=== PATIENT | male | born 1975 | race Caucasian/White ===

== ENCOUNTER 2019-01-19 06:56 | Observation (INO) | payer OTHER ==
--- NOTE | 2019-01-19 07:11 | EDPHY ---
H & P Stated Complaint: abd pain Time Seen by Provider: 01/19/19 07:10 - Personal History Current Tetanus/Diphtheria Vaccine: Unsure - Medical/Surgical History Hx Asthma: No Hx Chronic Respiratory Disease: No Hx Diabetes: No Hx Cardiac Disease: No Hx Renal Disease: No Hx Cirrhosis: No Hx Alcoholism: No - Social History Smoking Status: Never smoked Constitutional: Initial Vital Signs Heart Rate 52 L 01/19/19 07:04 Respiratory Rate 18 01/19/19 07:04 Blood Pressure 138/84 H 01/19/19 07:04 O2 Sat (%) 96 01/19/19 07:04 O2 Delivery Mode Room Air Allergies/Adverse Reactions: No Known Allergies Allergy (Unverified 01/19/19 07:07) Home Medications: Medication Instructions Recorded NK [No Known Home Meds] 01/19/19 Medical Decision Making - Diagnostics Imaging Results: Imaging Impressions Abdomen CT 01/19/19 07:18 Impression: 1. Mild small bowel distention with two apparent transition points in the right lower quadrant, possibly related to early small bowel obstruction, possibly from internal hernia. 2. Additional findings as above. Findings discussed with Camilo Monterroso MD on 01/19/2019 at 8:45 a.m. Imaging: Discussed imaging studies w/ inbound call center representative Radiologist, I viewed and interpreted images myself ED Course/Re-evaluation: CHIEF COMPLAINT: Abdominal pain nausea and vomiting HISTORY OF PRESENT ILLNESS: 43-year-old healthy male who at 3:30 a.m. This morning approximately 4 hr ago developed abdominal pain across the top of his abdomen. It is now quite diffuse and throughout his entire abdomen. He tried to drink some peppermint tea and some water but just threw up the liquid. He has not had a bowel movement and does not feel like he is passing much gas if any. He has never had any abdominal surgeries. He does not take any medicines. He denies fevers or chills. He states that he looks like he is any usually has a flat abdomen. REVIEW OF SYSTEMS: A comprehensive 10 system review of systems is otherwise negative aside from elements mentioned in the history of present illness and medical decision making. PHYSICAL EXAM: HR, BP, O2 Sat, RR. Temp noted General Appearance: Alert, well hydrated, appropriate, and non-toxic appearing. Head: Atraumatic without scalp tenderness or obvious injury Eyes: Pupils equal, round, reactive to light and accommodation, EOMI, no trauma , no injection. Ears: Clear bilaterally, no perforation, normal landmarks Nose: Atraumatic, no rhinorrhea, clear. Throat: There is no erythema or exudates, no lesions, normal tonsils, mucus membranes moist. Neck: Supple, 2+ carotid upstroke, nontender, no lymphadenopathy. Respiratory: No retractions, no distress, no wheezes, and no accessory muscle use. Lungs are clear to auscultation bilaterally. Cardiovascular: Regular rate and rhythm, no murmurs, rubs, or gallops. Bilateral carotid, radial, dorsalis pedis, and posterior tibial pulses intact. Good capillary refill all extremities. Gastrointestinal: Abdomen is distended, diffusely tender with peritoneal signs. No masses are appreciated. Musculoskeletal: Normal active ROM of all extremities, atraumatic. Neurological: Alert, appropriate, and interactive. The patient has normal DTRs and non-focal cranial nerves, motor, sensory, and cerebellar exam. Skin: No rashes, good turgor, no nodules on palpation. Past medical history: None Past surgical history: None and specifically no abdominal surgeries Family history: Noncontributory Social history: , employed, does not abuse tobacco drugs or alcohol, active and healthy DIAGNOSTICS/PROCEDURES/CRITICAL CARE TIME: Abdominopelvic CT: Mild small bowel distention with two apparent transition points in the right lower quadrant, possibly related to early small bowel obstruction, possibly from internal hernia. DIFFERENTIAL DIAGNOSIS: The differential diagnosis for the patient's abdominal pain included but was not limited to appendicitis, cholecystitis, hernias, testicular torsion, gastritis, and urinary tract infection. MEDICAL DECISION MAKING: This 43-year-old healthy male has a diffusely tender abdomen with guarding peritoneal signs. He is not passing much gas. He endorses the fact that he looks and usually has a flat abdomen. Pain has been increasing over the last 4 hr. Laboratory studies and contrast CT scan of the abdomen pelvis pending. I have given the patient intravenous fluids , keep him NPO, Dilaudid, ketorolac, Zofran. 0846: I spoke with Dr. Gonsalez, radiologist, regarding patient's abdominopelvic CT. There is a SBO. 0854: I consulted with Dr. Slaughter, general surgeon, regarding this patient. LDH and venous lactate ordered. 9:45 a.m.: I re-examined this patient. His belly seems quite a bit softer than it was initially. He may potentially be resolving his obstruction. Dr. Slaughter will evaluate the patient and review the scans. I have offered this patient an NG tube is not nauseated anymore really vomited once and he has declined currently. 1015: Dr. Slaughter is in the emergency department now and will examine the patient. I will page the hospitalist to admit the patient. 1047: I consulted with the hospitalist service, Dr. Fischer accepts admission of this patient. - Data Points Laboratory Results: Laboratory Results 01/19/19 07:25 01/19/19 07:25 01/19/19 01/19/19 01/19/19 07:40 07:34 07:25 WBC RBC Hgb POC Hgb 15.6 gm/dL gm/dL (13.7-17.5) Hct POC Hct 46 % % (40-51) MCV MCH MCHC RDW Plt Count MPV Neut % (Auto) Lymph % (Auto) [place] % (Auto) Eos % (Auto) Baso % (Auto) Nucleat RBC Rel Count Absolute Neuts (auto) Absolute Lymphs (auto) Absolute Monos (auto) Absolute Eos (auto) Absolute Basos (auto) Absolute Nucleated RBC Immature Gran % Immature Gran # POC Sodium 142 mEq/L mEq/L (135-145) Sodium POC Potassium 3.9 mEq/L mEq/L (3.3-5.0) Potassium POC Chloride 102 mEq/L mEq/L (97-110) Chloride Carbon Dioxide POC Total CO2 25 mEq/L mEq/L (22-31) Anion Gap POC BUN 15 mg/dL mg/dL (7-23) BUN Creatinine POC Creatinine 0.8 mg/dL mg/dL (0.7-1.3) Estimated GFR Glucose POC Glucose 108 mg/dL H mg/dL (70-100) Calcium Total Bilirubin Conjugated Bilirubin Unconjugated Bilirubin AST ALT Alkaline Phosphatase Lactate Dehydrogenase 468 IU/L IU/L (313-618) Total Protein Albumin Lipase Urine Color YELLOW Urine Appearance CLEAR Urine pH 6.0 (5.0-7.5) Ur Specific [place] 1.019 (1.002-1.030) Urine Protein NEGATIVE (NEGATIVE) Urine Ketones NEGATIVE (NEGATIVE) Urine Blood NEGATIVE (NEGATIVE) Urine Nitrate NEGATIVE (NEGATIVE) Urine Bilirubin NEGATIVE (NEGATIVE) Urine Urobilinogen NEGATIVE EU EU (0.2-1.0) Ur Leukocyte Esterase NEGATIVE (NEGATIVE) Urine Glucose NEGATIVE (NEGATIVE) 01/19/19 01/19/19 07:25 07:25 WBC 8.22 10^3/uL 10^3/uL (3.80-9.50) RBC 4.93 10^6/uL 10^6/uL (4.40-6.38) Hgb 14.9 g/dL g/dL (13.7-17.5) POC Hgb Hct 43.7 % % (40.0-51.0) POC Hct MCV 88.6 fL fL (81.5-99.8) MCH 30.2 pg pg (27.9-34.1) MCHC 34.1 g/dL g/dL (32.4-36.7) RDW 12.4 % % (11.5-15.2) Plt Count 238 10^3/uL 10^3/uL (150-400) MPV 10.5 fL fL (8.7-11.7) Neut % (Auto) 72.8 % % (39.3-74.2) Lymph % (Auto) 20.0 % % (15.0-45.0) [place] % (Auto) 5.0 % % (4.5-13.0) Eos % (Auto) 1.1 % % (0.6-7.6) Baso % (Auto) 0.7 % % (0.3-1.7) Nucleat RBC Rel Count 0.0 % % (0.0-0.2) Absolute Neuts (auto) 5.99 10^3/uL 10^3/uL (1.70-6.50) Absolute Lymphs (auto) 1.64 10^3/uL 10^3/uL (1.00-3.00) Absolute Monos (auto) 0.41 10^3/uL 10^3/uL (0.30-0.80) Absolute Eos (auto) 0.09 10^3/uL 10^3/uL (0.03-0.40) Absolute Basos (auto) 0.06 10^3/uL 10^3/uL (0.02-0.10) Absolute Nucleated RBC 0.00 10^3/uL 10^3/uL (0-0.01) Immature Gran % 0.4 % % (0.0-1.1) Immature Gran # 0.03 10^3/uL 10^3/uL (0.00-0.10) POC Sodium Sodium 139 mEq/L mEq/L (135-145) POC Potassium Potassium 4.3 mEq/L mEq/L (3.5-5.2) POC Chloride Chloride 104 mEq/L mEq/L (97-110) Carbon Dioxide 25 mEq/l mEq/l (22-31) POC Total CO2 Anion Gap 10 mEq/L mEq/L (6-14) POC BUN BUN 16 mg/dL mg/dL (7-23) Creatinine 0.8 mg/dL mg/dL (0.7-1.3) POC Creatinine Estimated GFR > 60 Glucose 104 mg/dL H mg/dL (70-100) POC Glucose Calcium 9.6 mg/dL mg/dL (8.5-10.4) Total Bilirubin 0.5 mg/dL mg/dL (0.1-1.4) Conjugated Bilirubin 0.3 mg/dL mg/dL (0.0-0.5) Unconjugated Bilirubin 0.2 mg/dL mg/dL (0.0-1.1) AST 26 IU/L IU/L (17-59) ALT 34 IU/L IU/L (21-72) Alkaline Phosphatase 60 IU/L IU/L (38-126) Lactate Dehydrogenase Total Protein 7.5 g/dL g/dL (6.3-8.2) Albumin 4.6 g/dL g/dL (3.5-5.0) Lipase 171 IU/L IU/L (23-300) Urine Color Urine Appearance Urine pH Ur Specific [place] Urine Protein Urine Ketones Urine Blood Urine Nitrate Urine Bilirubin Urine Urobilinogen Ur Leukocyte Esterase Urine Glucose Medications Given: Discontinued Medications Hydromorphone HCl (Dilaudid) 0.5 mg IVP EDNOW ONE Stop: 01/19/19 07:18 Last Admin: 01/19/19 07:49 Dose: 0.5 mg Sodium Chloride (Ns) 1,000 mls @ 0 mls/hr IV EDNOW ONE; Wide Open PRN Reason: Protocol Stop: 01/19/19 07:18 Last Admin: 01/19/19 07:38 Dose: 1,000 mls Sodium Chloride (Ns) 1,000 mls @ 0 mls/hr IV EDNOW ONE; Wide Open PRN Reason: Protocol Stop: 01/19/19 07:18 Last Admin: 01/19/19 07:40 Dose: 1,000 mls Ketorolac Tromethamine (Toradol) 30 mg IVP EDNOW ONE Stop: 01/19/19 07:18 Last Admin: 01/19/19 07:46 Dose: 30 mg Ondansetron HCl (Zofran) 4 mg IVP EDNOW ONE Stop: 01/19/19 07:18 Last Admin: 01/19/19 07:40 Dose: 4 mg Point of Care Test Results: Chemistry 01/19/19 07:34 POC Sodium 142 mEq/L mEq/L (135-145) POC Potassium 3.9 mEq/L mEq/L (3.3-5.0) POC Chloride 102 mEq/L mEq/L (97-110) POC Total CO2 25 mEq/L mEq/L (22-31) POC BUN 15 mg/dL mg/dL (7-23) POC Creatinine 0.8 mg/dL mg/dL (0.7-1.3) POC Glucose 108 mg/dL H mg/dL (70-100) ISTAT H&H 01/19/19 07:34 POC Hgb 15.6 gm/dL gm/dL (13.7-17.5) POC Hct 46 % % (40-51) Departure - Departure Disposition: [facility] Inpatient Acute Clinical Impression: Small bowel obstruction Condition: Fair Referrals: Verito Shah MD [Primary Care Provider] - As per Instructions
[2019-01-19] MEDS ORDERED: KETOROLAC 30 MG/1 ML SDV IVP ONE (07:17)
[2019-01-19] MEDS ORDERED: ONDANSETRON 4 MG/2 ML VIAL IVP ONE (07:17)
[2019-01-19] MEDS ORDERED: HYDROmorphONE/DILAUDID 2 MG/ML INJ IVP ONE ×2 (07:17→10:52)
[2019-01-19] MEDS ORDERED: NS 1,000 ML IV ONE ×2 (07:17)
[2019-01-19 07:33] LABS: PLATELET COUNT 238 10^3/uL (150-400)
[2019-01-19] MEDS ORDERED: IOPAMIDOL (ISOVUE-300) 100 ML BTL ONE (08:08)
[2019-01-19] MEDS ORDERED: GASTROVIEW 30 ML UNIT PO ONE ×2 (10:36→20:22)
--- NOTE | 2019-01-19 10:39 | PDCONSULT ---
Enterprise Application [employer] Note: #[id number] zayra Slaughter MD, FACS
[2019-01-19] MEDS ORDERED: PROMETHAZINE HCL 25 MG/ML INJ IVP ONE ×2 (10:52→15:36)
[2019-01-19] MEDS ORDERED: HYDROmorphONE/DILAUDID 1 MG/ML INJ ONE (10:54)
[2019-01-19] MEDS: LR 1,000 ML IV SCH (11:26)
--- NOTE | 2019-01-19 12:26 | GCON ---
[f rep st] CONSULTATION SURGICAL CONSULT DATE OF CONSULTATION: 01/19/2019 REFERRING PHYSICIAN: Camilo Monterroso MD CHIEF COMPLAINT: Abdominal pain and vomiting. HISTORY OF PRESENT ILLNESS: The patient is a 43-year-old male who awoke early this morning with abdominal pain and distention. He tried some peppermint tea and drinking water and began vomiting. He came to the emergency room for evaluation, was seen by Dr. Monterroso, and a CAT scan of the abdomen was performed , which showed a possible distal small bowel obstruction per Dr. Gonsalez. The patient describes the pain as being upper abdominal/epigastric in location, without radiation, coming in waves, but present all the time. He had a normal bowel movement yesterday at approximately noon and has passed some gas this morning, but nothing since then. He has had no hematemesis, melena, or hematochezia. No prior history of abdominal pains, and no prior abdominal surgery or abdominal trauma that he can recall. PAST MEDICAL HISTORY: The patient had a history of a hernia repair as a child. CURRENT MEDICATIONS: [id number] allergy medicines. SOCIAL HISTORY: He is a nonsmoker. Denies significant alcohol use. SOCIAL HISTORY: The patient is and has children. Nobody at home has a gastrointestinal illness currently. FAMILY HISTORY: Significant for colon cancer in the patient's grandparents. He had a colonoscopy at age 38 that was negative. REVIEW OF SYSTEMS: Pertinent negatives per the history of present illness. PHYSICAL EXAMINATION: GENERAL APPEARANCE: Reveals a pleasant young man, who is in mild distress. VITAL SIGNS: Blood pressure 112/69, heart rate 44, respiratory rate 18, and O2 saturation is 96% on room air. HEENT: There is no scleral icterus. NECK: No adenopathy. LUNGS: Clear. HEART: Regular rate and rhythm, with moderate bradycardia. ABDOMEN: Soft. No percussion tenderness. Bowel sounds are hypoactive. The patient has focal tenderness in the epigastrium and right upper quadrant, without palpable mass. No hepatosplenomegaly. No palpable hernias. RECTAL: Not repeated. EXTREMITIES: Warm and dry, without edema. The patient's CT scan was reviewed and shows nonspecific dilated loops of small bowel. Moderate stool in the cecum and ascending colon, as well as descending colon. No pathologic calcifications or free air. LABORATORY STUDIES: WBC is 8.2, hemoglobin 14.9, hematocrit 43.7 Sodium 139, potassium 4.3, chloride 104, bicarb 25, BUN 16, creatinine 0.8, glucose 104, calcium 9.6. Bilirubin 0.5, conjugated bilirubin 0.3, AST 26, ALT 34, alkaline phosphatase 60. LDH 468. Lipase 171. Albumin 4.6. Urinalysis is negative. IMPRESSION: Abdominal pain. Broad differential including viral gastroenteritis , bowel obstruction, cholelithiasis and/or cholecystitis. Given the patient's lack of prior abdominal surgery, I would think the incidence of a bowel obstruction in this setting to be quite low, less than 1%. Despite normal liver function tests, would recommend an ultrasound of the abdomen to exclude cholelithiasis. The patient should be admitted for observation and intravenous fluids. We will administer oral Gastrografin and obtain a KUB later today to exclude a small-bowel obstruction from his differential. /[id number]/MODL MTDD
[2019-01-19] MEDS ORDERED: ACETAMINOPHEN 325 MG TAB PO PRN (12:35)
[2019-01-19] MEDS ORDERED: ONDANSETRON DISINTEGRATING 4 MG TAB PO PRN (12:35)
[2019-01-19] MEDS ORDERED: PROMETHAZINE HCL 25 MG/ML INJ IVP PRN (12:35)
[2019-01-19] MEDS ORDERED: ONDANSETRON 4 MG/2 ML VIAL IVP PRN (12:35)
--- NOTE | 2019-01-19 13:46 | GHP ---
[f rep st] HISTORY AND PHYSICAL DATE OF ADMISSION: 01/19/2019 CHIEF COMPLAINT: Abdominal pain and 2 bouts of vomiting. HISTORY OF PRESENT ILLNESS: The patient is a 43-year-old male who has no significant past medical history. He presented to the emergency room with ongoing abdominal pain. His symptoms woke him up around 3:30 this morning. He describes that the pain was in both upper quadrant areas and it was a radiating , throbbing-type pain. He was unable to get in any type of comfortable position at home. At dinner, he had some veggie sausage and tomatoes and noodles. Earlier that day, he had sushi from [employer]. No one is ill at home. He denies any fever, chills, or any type of weight changes. He does not suffer from constipation. This morning, he tried some peppermint tea and water. He had some emesis that followed this. He denies any hematemesis, melena, or hematochezia. His last regular bowel movement was yesterday. He has no history of any other issues with abdominal pain. He had a colonoscopy at age 38 because his family has a history of colon cancer. He said the colonoscopy was normal. During my interview, his pain is well managed. He continues to have some pain in the right upper quadrant area with palpation. PAST MEDICAL HISTORY: None. PAST SURGICAL HISTORY: 1. Laparoscopic right shoulder surgery. 2. [place] teeth extraction. 3. Hernia repair as a child. FAMILY HISTORY: His mom is age 83 and has various health issues. His father at age 71 from complications of strokes. His family has a history of stomach cancer and colon cancer. SOCIAL HISTORY: He has been for 17 years. His is at the bedside. They have a 6-year-old daughter. He has an alcohol beverage with dinner. He does not smoke. He occasionally uses cannabis. 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 ALLERGIES: Seasonal. HOME MEDICATIONS: Ibuprofen 200 mg daily p.r.n., ferrous sulfate 325 mg daily, vitamin C 500 mg daily, Claritin 10 mg daily and Flonase spray daily. REVIEW OF SYSTEMS: A 10-point review of system was performed and was negative other than pertinent positives in the HPI and Past Medical History. PHYSICAL EXAM: GENERAL: The patient is a 43-year-old male who appears to be in good health. VITAL SIGNS: Blood pressure is 112/69, heart rate of 42, respiratory rate of 16, O2 sats on room air 94%, temperature is 36.9 Celsius. EYES: Pupils are equal and reactive. EOMs are intact. No conjunctival injection noted. NECK: Trachea is midline. No masses. CARDIOVASCULAR: He is bradycardic without murmur, rubs, or gallops noted. CHEST/LUNGS: Normal respiratory effort. Clear without wheezing, rales, or rhonchi. ABDOMEN: Soft. He has tenderness in the right upper quadrant area. His bowel sounds are hypoactive. No hepatosplenomegaly was noted. SKIN: No rashes. MUSCULOSKELETAL: Normal gait, equal upper extremity strength. PSYCHIATRIC: He is alert and oriented. Normal mood and affect. Normal judgment, insight and normal memory. LABORATORY DATA: Reviewed. A CBC shows a white blood cell count of 8.22, hemoglobin 14.9, hematocrit 43.7, platelet count of 238. Blood gas shows a venous lactic acid at 0.9. Chemistry: Sodium is 142, potassium 3.9, chloride of 102, BUN of 15, creatinine of 0.8, glucose of 108, total bilirubin 0.5, conjugated bilirubin 0.3, unconjugated bilirubin 0.2, AST 26, ALT 34, alkaline phosphatase 60, albumin 4.6, lipase 171. Urinalysis does not show any infectious etiology. RADIOLOGIC DATA: 1. CT of the abdomen shows mild small bowel distention with 2 apparent transition points in the right lower quadrant, possibly related to early small bowel obstruction, possibly from internal hernia. He also has a T10 hemangioma. 2. An abdominal ultrasound shows no cholelithiasis or biliary duct dilation. He has benign hepatic cyst of 8 mm. He has no splenomegaly or ascites. No aortic aneurysm. The pancreatic tail is obscured by bowel gas. He has fluid- filled dilated loops of small bowel, partially visualized. ASSESSMENT/PLAN: 1. Abdominal pain. During my interview, his pain is well managed, but it could be that he was given pain medications in the emergency room. The ultrasound does not note any type of cholelithiasis. He has normal liver function tests. Surgery has seen and evaluated him. Oral Gastrografin has been ordered, and a KUB will be ordered later today to exclude a small bowel obstruction. 2. Vomiting. This has since resolved. If this should persist, could offer the patient nasogastric tube. Also, will order antiemetics. 3. Bradycardia. The patient is overall young and works out. Continued monitoring. He is asymptomatic of this. 4. Deep venous thrombosis prophylaxis, low risk. 5. Length of stay: He will require likely less than one midnight stay depending on what the KUB shows later today. /[id number]/MODL MTDD
[2019-01-19] MEDS: HYDROmorphONE/DILAUDID 1 MG/ML INJ IVP PRN ×3 (15:03→23:26)
[2019-01-19] MEDS ORDERED: LORazepam 2 MG/ML INJ IVP ONE (15:37)
[2019-01-19] MEDS ORDERED: HYDROmorphONE/DILAUDID 1 MG/ML INJ IVP PRN (18:26)
--- NOTE | 2019-01-19 18:27 | HOSPPROG ---
Hospitalist Progress Note Assessment/Plan: Notified by RN of ongoing emesis, 500 mL. Reviewed recent plain film, partial SBO. Advised RN to place NG tube. Will increase dilaudid dose for increased pain. Objective: Vital Signs Temp Pulse Resp BP Pulse Ox 37.0 C 50 L 16 112/75 90 L 01/19/19 16:00 01/19/19 16:00 01/19/19 16:00 01/19/19 16:00 01/19/19 16:00 01/18/19 01/19/19 01/20/19 05:59 05:59 05:59 Intake Total 567 Output Total 750 Balance -183 ICD10 Worksheet Patient Problems: Problems Problem Status Onset Small bowel obstruction Acute
--- NOTE | 2019-01-19 20:32 | SOAPPROG ---
Downtime Inpatient MD Late Entry SOAP Note: Mr. Manriquez vomitted most of the contrast given earlier. Some gastrograffin reached the distal bowel and then diluted out. He feels better after an NGT ( output <100ml) He has had no flatus or stool but was able to void His vitals remain stable . Abd exam is unchanged, mostly tender in the upper abdomen epigastrium and RUQ, lower abdomen is soft. Bowel sounds are present now, not hyperactive. I recommended additional contrast and clamping the NGT with repeat imaging to follow. Sophia Slaughter MD, FACS
[2019-01-19] MEDS: METOCLOPRAMIDE 10 MG/2 ML VIAL IVP SCH (22:48)
[2019-01-19] MEDS ORDERED: LORazepam 2 MG/ML INJ IVP PRN (23:08)
[2019-01-20] MEDS: HYDROmorphONE/DILAUDID 1 MG/ML INJ IVP PRN ×2 (02:14→05:16)
[2019-01-20] MEDS: METOCLOPRAMIDE 10 MG/2 ML VIAL IVP SCH ×2 (05:16→12:46)
[2019-01-20] MEDS: LR 1,000 ML IV SCH (05:22)
[2019-01-20 05:38] LABS: PLATELET COUNT 251 10^3/uL (150-400)
[2019-01-20] MEDS ORDERED: FLUTICASONE NASAL 120 SPRAYS/16 GM MDI EACHNARE SCH (09:00)
--- NOTE | 2019-01-20 09:20 | SOAPPROG ---
SOAP Progress Note Assessment/Plan: Assessment: Plan: Subjective: crampy abd pain throughtout night pe: abd tender in upper portion no flatus, no stool for 24 hours. assess: sbo likely from adhesive band ofr internal henria ree: laparoscopy, possilbe laparotomy risks of this explained to pt, who wishes to proceed. Objective: Vital Signs Temp Pulse Resp BP Pulse Ox 37.3 C 45 L 14 113/63 94 01/20/19 08:00 01/20/19 08:00 01/20/19 08:00 01/20/19 08:00 01/20/19 08:00 Laboratory Results 01/20/19 04:54 01/20/19 04:54 01/19/19 01/20/19 01/21/19 05:59 05:59 05:59 Intake Total 1546 Output Total 1850 Balance -304 ICD10 Worksheet Patient Problems: Problems Problem Status Onset Small bowel obstruction Acute
--- NOTE | 2019-01-20 11:25 | ASMTCMCOM ---
CM Note CM Note Notes: Reviewed Chart, pt admitted for abdominal pain. 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 Imaging reveals a sbo, pt had ng tube placed. Anticipate he will dc home w/support of when medically stable. CM available should pt's needs change. DC Plan: Independent Date Signed: 01/20/2019 11:24 AM Electronically Signed By:Alison Chester RN
[2019-01-20 15:16] VITALS: BP 118/67
--- NOTE | 2019-01-20 16:29 | PDDCSUM ---
Discharge Summary Discharge Summary: Date of Admission: 01/19/2019 Date of Discharge: 01/20/2019 Discharge Diagnoses: Abdominal pain, resolved All bowel obstruction, resolved Admission Diagnoses: Abdominal pain Vomiting Bradycardia Consultants: General surgery-Dr. Sameer Slaughter [facility] Course: The patient 43-year-old male who presented with severe abdominal pain, nausea, and vomiting. He was found to have small-bowel obstruction. Patient was initially treated with conservative medical management but he continued to have abdominal pain so surgery was scheduled for the next day. However by the next day, the patient was feeling much better and his symptoms resolved. He had flatus and a bowel movement. The patient was tolerating a diet and was discharged home in stable condition. Physical Exam: Gen - alert, oriented, in NAD. Ambulating. Abd: SND. Mild tenderness to palpation throughout. Condition: Stable. Discharged to: Home. Pertinent tests/labs/imaging: Abdominal x-ray-small bowel obstruction. Medications: Please see med rec form. No new medications. Special instructions: Return to hospital for recurrent, worsening symptoms Follow up: Follow up with PCP as scheduled
== END 2019-01-20 17:31 | disposition home or self-care (01) ==
LOC: F3E 12:07
PROVIDERS: ADMIT Internal Medicine; ATTEND Internal Medicine
PROC: 0D9670Z Drainage of Stomach with Drainage Device, Via Natural or Artificial Opening (ICD-10-PCS; principal; 2019-01-19)
DX: K56.601 Complete intestinal obstruction, unspecified as to cause (principal); E86.9 Volume depletion, unspecified
CPT/HCPCS: 74018; 74177; 76700; 96361; 96374; 96375; 96376; 99285; G0378; 82435-PO; 82565-PO; 82947-PO; 84132-PO; 84295-PO; 84520-PO; 85014-ER; J1170; J1885; J2060; J2405; J2550; J2765; Q9967